=== PATIENT | male | born 1940 | race Caucasian/White ===

== ENCOUNTER → 2016-07-26 | Outpatient (CLI) | payer MEDICARE, BC | LOC: VAS 17:26 | DX: I49.9 Cardiac arrhythmia, unspecified (principal); R94.31 Abnormal electrocardiogram [ECG] [EKG] ==

== ENCOUNTER → 2016-08-22 | Day surgery (SDC) | payer MEDICARE, BC | LOC: MSO 07:24 | DX: Z12.11 Encounter for screening for malignant neoplasm of colon (principal); D12.5 Benign neoplasm of sigmoid colon; K31.7 Polyp of stomach and duodenum; K92.1 Melena; K21.9 Gastro-esophageal reflux disease without esophagitis; R05 Cough; I10 Essential (primary) hypertension; K64.4 Residual hemorrhoidal skin tags; K64.8 Other hemorrhoids; K59.00 Constipation, unspecified; Z80.0 Family history of malignant neoplasm of digestive organs | CPT/HCPCS: 00810; A4649; J3010; J7030 ==

== ENCOUNTER → 2017-02-15 | Outpatient (CLI) | payer MEDICARE, BC | LOC: RAD 08:18 | DX: M25.842 Other specified joint disorders, left hand (principal) ==

== ENCOUNTER 2018-09-05 09:30 | Outpatient (RCR) | payer MEDICARE, BC | END 2018-09-11 | disposition home or self-care (01) | LOC: PT | DX: M48.062 Spinal stenosis, lumbar region with neurogenic claudication (principal); M41.9 Scoliosis, unspecified | CPT/HCPCS: G8978-GP; G8979-GP ==

== ENCOUNTER 2018-09-26 09:30 | Outpatient (RCR) | payer MEDICARE, BC | END 2018-09-26 10:00 | LOC: PT 09:30 | DX: M48.062 Spinal stenosis, lumbar region with neurogenic claudication (principal); M41.9 Scoliosis, unspecified; M99.83 Other biomechanical lesions of lumbar region ==

== ENCOUNTER 2021-12-28 09:53 | Outpatient (RCR) | payer MEDICARE, BC | END 2021-12-30 | disposition home or self-care (01) | LOC: PT | DX: R27.0 Ataxia, unspecified (principal); M54.42 Lumbago with sciatica, left side; G89.29 Other chronic pain ==

== ENCOUNTER 2022-01-04 10:11 | Outpatient (RCR) | payer MEDICARE, BC | END 2022-01-30 | disposition home or self-care (01) | LOC: PT | DX: R27.0 Ataxia, unspecified (principal); M54.42 Lumbago with sciatica, left side; G89.29 Other chronic pain ==

== ENCOUNTER → 2022-03-02 | Outpatient (RCR) | payer MEDICARE, BC | LOC: PT | DX: R27.0 Ataxia, unspecified (principal); M54.42 Lumbago with sciatica, left side ==

== ENCOUNTER 2022-04-04 08:00 | Outpatient (RCR) | payer MEDICARE, BC | END 2022-05-02 | disposition home or self-care (01) | LOC: PT | DX: R27.0 Ataxia, unspecified (principal); M54.42 Lumbago with sciatica, left side ==

== ENCOUNTER 2022-05-03 13:09 | Outpatient (RCR) | payer MEDICARE, BC | END 2022-06-01 | disposition home or self-care (01) | LOC: PT | DX: M54.42 Lumbago with sciatica, left side (principal); R27.0 Ataxia, unspecified ==